=== PATIENT | female | born 1980 | race Caucasian/White ===

== ENCOUNTER → 2017-11-14 12:35 | Outpatient (CLI) | payer OTHER, SELFPAY ==
[2017-11-14 14:15] LABS: Free T3 2.3 pg/mL (2.18-3.98); T4 Free Direct 0.84 ng/dL (0.76-1.46)
== END ==
PROVIDERS: Family Provider Family Medicine; PCP Family Medicine
DX: E06.3 Autoimmune thyroiditis (principal)
CPT/HCPCS: 36415; 84439; 84481

== ENCOUNTER → 2022-03-06 | Outpatient (CLI) | payer OTHER, SELFPAY ==
[2022-03-06 17:59] LABS: Hematocrit 40.4 % (37-47); Mean Corp Hgb Conc 32.2 g/dL (32-36); Mean Corpuscular Hgb 30.1 pg (27.0-32.0); Mean Corpuscular Volume 93.5 fL (81-99); Mean Platelet Vol. 10.6 fl (6.2-12.0); Platelet Count 269 K/mm3 (150-450); RBC Distribution Width CV 12.4 % (11.6-14.6); RBC Distribution Width SD 42.5 fl (35.1-43.9); Red Blood Count 4.32 M/mm3 (4.2-5.4); White Blood Count 4.5 K/mm3 (4.4-11.0)
[2022-03-06 18:14] LABS: T3 Total - Triiodothyronine 0.92 ng/mL (0.6-1.81); Vitamin D,25 Hydroxy 36.4 ng/mL
[2022-03-06 18:27] LABS: ALB/GLOB Ratio 1.1 RATIO (0.9-2.4); AST(SGOT) 16 U/L (15-37); Alanine Aminotransfer ALT/SGPT 26 U/L (13-56); Alkaline Phosphatase 69 U/L (45-117); Anion Gap 7 (5-15); BUN 12 mg/dL (7-18); BUN/Creat Ratio 13.2 RATIO (10-20); Calcium,Total 8.9 mg/dL (8.5-10.1); Chloride 107 mmol/L (98-107); Cholesterol 211 mg/dL (200); Creatinine, Serum 0.91 mg/dL (0.55-1.02); EST Glomerular Filtration Rate 72 mL/min (>60); Est Glom Filt Rate - Afr Amer 87 mL/min (>60); Globulin 3.7 g/dL (2.2-4.2); Glucose 81 mg/dL (74-106); High Density Lipoprotein 80 mg/dL; Iron 82 ug/dL (50-170); Magnesium 2.1 mg/dL (1.6-2.6); Potassium 3.8 mmol/L (3.5-5.1); Protein, Total 7.7 g/dL (6.4-8.2); Sodium Level 142 mmol/L (136-145); T4 Free Direct 0.92 ng/dL (0.76-1.46); Thyroid Stim Hormone (TSH) 3.24 uIU/mL (0.358-3.74); Triglycerides 65 mg/dL; Very Low Density Lipoprotein 13 mg/dL (5-40)
== END | disposition home or self-care (01) ==
PROVIDERS: PCP Student in an Organized Health Care Education/Training Program; Referring Provider Student in an Organized Health Care Education/Training Program; Visit Provider Student in an Organized Health Care Education/Training Program
DX: Z13.220 Encounter for screening for lipoid disorders (principal); Z13.1 Encounter for screening for diabetes mellitus; E06.3 Autoimmune thyroiditis; E55.9 Vitamin D deficiency, unspecified; R25.2 Cramp and spasm; R53.83 Other fatigue
CPT/HCPCS: 36415; 80053; 80061; 82306; 83540; 83735; 84439; 84443; 84480; 85027

== ENCOUNTER → 2022-05-29 | Outpatient (CLI) | payer OTHER, SELFPAY ==
[2022-05-29 10:56] LABS: Vitamin B12 957 pg/mL (211-911)
[2022-05-29 11:16] LABS: Free T3 2.8 pg/mL (2.18-3.98); Thyroid Stim Hormone (TSH) 6.07 uIU/mL (0.358-3.74)
[2022-05-29 12:20] LABS: T4 Free Direct 0.85 ng/dL (0.76-1.46)
[2022-05-31 16:09] LABS: Endomysial Antibody IgA Negative (Negative); Immunoglobulin A 247 mg/dL (87-352); Thyroid Peroxidase AB 227 IU/mL (0-34)
[2022-05-31 16:56] LABS: Thyroglobulin Antibody 1.1 IU/mL (0.0-0.9); t-Transglutaminase IgA <2 U/mL (0-3)
== END | disposition home or self-care (01) ==
LOC: MTLAB 07:55
PROVIDERS: PCP Student in an Organized Health Care Education/Training Program; Referring Provider Internal Medicine Endocrinology, Diabetes & Metabolism; Visit Provider Internal Medicine Endocrinology, Diabetes & Metabolism
DX: E06.3 Autoimmune thyroiditis (principal); R53.82 Chronic fatigue, unspecified; E04.2 Nontoxic multinodular goiter
CPT/HCPCS: 36415; 82533; 82607; 82746; 82784; 83516; 84439; 84443; 84445; 84481; 86255; 86376; 86800

== ENCOUNTER → 2022-07-25 | Outpatient (CLI) | payer OTHER, SELFPAY ==
[2022-07-25 11:12] LABS: T4 Free Direct 0.78 ng/dL (0.76-1.46)
== END | disposition home or self-care (01) ==
LOC: MTLAB 07:19
PROVIDERS: PCP Student in an Organized Health Care Education/Training Program; Referring Provider Internal Medicine Endocrinology, Diabetes & Metabolism; Visit Provider Internal Medicine Endocrinology, Diabetes & Metabolism
DX: E06.3 Autoimmune thyroiditis (principal)
CPT/HCPCS: 36415; 84439; 84443

== ENCOUNTER → 2022-09-17 | Outpatient (CLI) | payer OTHER, SELFPAY ==
[2022-09-17 10:21] LABS: Free T3 2.3 pg/mL (2.18-3.98); T4 Free Direct 0.77 ng/dL (0.76-1.46); Thyroid Stim Hormone (TSH) 5.32 uIU/mL (0.358-3.74)
== END | disposition home or self-care (01) ==
LOC: MTLAB 07:44
PROVIDERS: PCP Student in an Organized Health Care Education/Training Program; Referring Provider Internal Medicine Endocrinology, Diabetes & Metabolism; Visit Provider Internal Medicine Endocrinology, Diabetes & Metabolism
DX: E06.3 Autoimmune thyroiditis (principal)
CPT/HCPCS: 36415; 84439; 84443; 84481

== ENCOUNTER → 2022-11-07 | Outpatient (CLI) | payer OTHER, SELFPAY ==
[2022-11-07 11:05] LABS: Free T3 2.4 pg/mL (2.18-3.98); T4 Free Direct 0.79 ng/dL (0.76-1.46); Thyroid Stim Hormone (TSH) 2.84 uIU/mL (0.358-3.74)
== END | disposition home or self-care (01) ==
LOC: MTLAB 07:55
PROVIDERS: PCP Student in an Organized Health Care Education/Training Program
DX: E06.3 Autoimmune thyroiditis (principal)
CPT/HCPCS: 36415; 84439; 84443; 84481

== ENCOUNTER → 2023-02-12 | Outpatient (CLI) | payer OTHER, SELFPAY ==
[2023-02-12 10:23] LABS: Free T3 2.5 pg/mL (2.18-3.98); T4 Free Direct 0.87 ng/dL (0.76-1.46); Thyroid Stim Hormone (TSH) 3.79 uIU/mL (0.358-3.74)
== END | disposition home or self-care (01) ==
PROVIDERS: PCP Student in an Organized Health Care Education/Training Program
DX: E06.3 Autoimmune thyroiditis (principal)
CPT/HCPCS: 36415; 84439; 84443; 84481

== ENCOUNTER → 2023-08-18 | Outpatient (CLI) | payer OTHER, SELFPAY ==
[2023-08-18 10:27] LABS: Vitamin D,25 Hydroxy 49.4 ng/mL
[2023-08-18 10:40] LABS: Anion Gap 6 (5-15); BUN 18 mg/dL (7-18); BUN/Creat Ratio 18.9 RATIO (10-20); Calcium,Total 8.7 mg/dL (8.5-10.1); Chloride 106 mmol/L (98-107); Creatinine, Serum 0.95 mg/dL (0.55-1.02); EST Glomerular Filtration Rate 67 mL/min (>60); Est Glom Filt Rate - Afr Amer 81 mL/min (>60); Free T3 2.5 pg/mL (2.18-3.98); Glucose 84 mg/dL (74-106); Potassium 3.2 mmol/L (3.5-5.1); Sodium Level 140 mmol/L (136-145); T4 Free Direct 0.93 ng/dL (0.76-1.46); Thyroid Stim Hormone (TSH) 4.07 uIU/mL (0.358-3.74)
== END | disposition home or self-care (01) ==
PROVIDERS: PCP Student in an Organized Health Care Education/Training Program; Referring Provider Internal Medicine Endocrinology, Diabetes & Metabolism; Visit Provider Internal Medicine Endocrinology, Diabetes & Metabolism
DX: E06.3 Autoimmune thyroiditis (principal); E55.9 Vitamin D deficiency, unspecified; R53.82 Chronic fatigue, unspecified
CPT/HCPCS: 36415; 80048; 82306; 84439; 84443; 84481

== ENCOUNTER → 2023-09-05 | Outpatient (CLI) | payer OTHER, SELFPAY ==
[2023-09-05 10:58] LABS: Anion Gap 7 (5-15); BUN 10 mg/dL (7-18); BUN/Creat Ratio 11.3 RATIO (10-20); Calcium,Total 8.7 mg/dL (8.5-10.1); Chloride 108 mmol/L (98-107); Creatinine, Serum 0.88 mg/dL (0.55-1.02); EST Glomerular Filtration Rate 73 mL/min (>60); Est Glom Filt Rate - Afr Amer 89 mL/min (>60); Glucose 87 mg/dL (74-106); Potassium 3.6 mmol/L (3.5-5.1); Sodium Level 141 mmol/L (136-145)
== END | disposition home or self-care (01) ==
LOC: MTLAB 07:20
PROVIDERS: PCP Student in an Organized Health Care Education/Training Program; Referring Provider Internal Medicine Endocrinology, Diabetes & Metabolism; Visit Provider Internal Medicine Endocrinology, Diabetes & Metabolism
DX: E87.6 Hypokalemia (principal)
CPT/HCPCS: 36415; 80048

== ENCOUNTER → 2023-10-02 | Outpatient (CLI) | payer OTHER, SELFPAY ==
[2023-10-02 10:56] LABS: Free T3 2.6 pg/mL (2.18-3.98); T4 Free Direct 0.79 ng/dL (0.76-1.46)
== END | disposition home or self-care (01) ==
LOC: MTLAB 07:53
PROVIDERS: PCP Student in an Organized Health Care Education/Training Program
DX: E06.3 Autoimmune thyroiditis (principal)
CPT/HCPCS: 36415; 84439; 84443; 84481

== ENCOUNTER → 2024-02-23 | Outpatient (CLI) | payer OTHER, SELFPAY ==
[2024-02-23 11:30] LABS: Anion Gap 4 (5-15); BUN 12 mg/dL (7-18); BUN/Creat Ratio 13.2 RATIO (10-20); Calcium,Total 8.7 mg/dL (8.5-10.1); Chloride 108 mmol/L (98-107); Creatinine, Serum 0.91 mg/dL (0.55-1.02); EST Glomerular Filtration Rate 71 mL/min (>60); Est Glom Filt Rate - Afr Amer 86 mL/min (>60); Glucose 92 mg/dL (74-106); Potassium 3.6 mmol/L (3.5-5.1); Sodium Level 140 mmol/L (136-145)
== END | disposition home or self-care (01) ==
LOC: MTLAB 08:06
PROVIDERS: PCP Student in an Organized Health Care Education/Training Program; Referring Provider Internal Medicine Endocrinology, Diabetes & Metabolism; Visit Provider Internal Medicine Endocrinology, Diabetes & Metabolism
DX: E87.6 Hypokalemia (principal)
CPT/HCPCS: 36415; 80048

== ENCOUNTER → 2024-03-18 | Outpatient (CLI) | payer OTHER, SELFPAY ==
[2024-03-18 10:56] LABS: Cholesterol 214 mg/dL (200); High Density Lipoprotein 78 mg/dL; Triglycerides 55 mg/dL; Very Low Density Lipoprotein 11 mg/dL (5-40)
[2024-03-18 11:50] LABS: Hepatitis C Antibody Non-Reactive (Nonreactive)
== END | disposition home or self-care (01) ==
LOC: MTLAB 07:44
PROVIDERS: PCP Student in an Organized Health Care Education/Training Program; Referring Provider Student in an Organized Health Care Education/Training Program; Visit Provider Student in an Organized Health Care Education/Training Program
DX: Z00.00 Encounter for general adult medical examination without abnormal findings (principal); Z11.59 Encounter for screening for other viral diseases; Z13.220 Encounter for screening for lipoid disorders; E78.5 Hyperlipidemia, unspecified
CPT/HCPCS: 36415; 80061; 86803

== ENCOUNTER → 2024-06-07 | Outpatient (CLI) | payer OTHER, SELFPAY ==
[2024-06-07 11:54] LABS: Anion Gap 9 (5-15); BUN 12 mg/dL (4-19); BUN/Creat Ratio 14.2 RATIO (10-20); Calcium,Total 9.1 mg/dL (7.6-11.0); Carbon Dioxide 25.1 mmol/L (21.0-32.0); Chloride 107 mmol/L (98-108); Creatinine, Serum 0.87 mg/dL (0.70-1.20); EST Glomerular Filtration Rate 83 (>60); Free T3 2.6 pg/mL (2.18-3.98); Glucose 88 mg/dL (70-99); Sodium Level 142 mmol/L (133-145)
== END | disposition home or self-care (01) ==
LOC: MTLAB 08:14
PROVIDERS: PCP Student in an Organized Health Care Education/Training Program; Referring Provider Internal Medicine Endocrinology, Diabetes & Metabolism; Visit Provider Internal Medicine Endocrinology, Diabetes & Metabolism
DX: E06.3 Autoimmune thyroiditis (principal); E55.9 Vitamin D deficiency, unspecified; E87.6 Hypokalemia
CPT/HCPCS: 36415; 80048; 82306; 84439; 84443; 84481

== ENCOUNTER → 2024-08-31 | Outpatient (CLI) | payer OTHER, SELFPAY ==
[2024-08-31 10:44] LABS: Anion Gap 10 (5-15); BUN 13 mg/dL (4-19); BUN/Creat Ratio 14.8 RATIO (10-20); Calcium,Total 9.1 mg/dL (7.6-11.0); Carbon Dioxide 23.8 mmol/L (21.0-32.0); Chloride 106 mmol/L (98-108); Free T3 2.6 pg/mL (2.18-3.98); Glucose 84 mg/dL (70-99); Potassium 4.0 mmol/L (3.3-5.1); Vitamin D,25 Hydroxy 49.3 ng/mL (30-100)
== END | disposition home or self-care (01) ==
LOC: MTLAB 07:59
PROVIDERS: PCP Student in an Organized Health Care Education/Training Program; Referring Provider Internal Medicine Endocrinology, Diabetes & Metabolism; Visit Provider Internal Medicine Endocrinology, Diabetes & Metabolism
DX: E06.3 Autoimmune thyroiditis (principal); E55.9 Vitamin D deficiency, unspecified; E87.6 Hypokalemia
CPT/HCPCS: 36415; 80048; 82306; 84439; 84443; 84481

== ENCOUNTER → 2024-10-15 | Outpatient (CLI) | payer OTHER, SELFPAY ==
--- OUTSIDE RECORDS SUMMARY | 2024-10-15 07:28 | XMS RPT_ITS | CCD ---
Author Organization [facility] Care Team Providers Care Clerical Warehouseman Name Role Phone MOROCCO, ISAEL D Unavailable Unavailable MOROCCO, ISAEL D Unavailable Unavailable MOROCCO, ISAEL D Unavailable Unavailable MOROCCO, ISAEL D Unavailable Unavailable MOROCCO, ISAEL D Unavailable Unavailable [facility] Unavailable Unavailable MOROCCO, ISAEL D Unavailable Unavailable MOROCCO, ISAEL D Unavailable Unavailable MOROCCO, ISAEL D Unavailable Unavailable [facility] Unavailable Unavailable Marie Staples DO Primary Care Provider Dr. Damir Tripathi DO Primary Care Provider Regino REGULATORY ADMINISTRATOR-CNatasha Attending Provider Regino REGULATORY ADMINISTRATOR-CNatasha Referring Provider [phone] Damir Tripathi Referring Unavailable Damir Tripathi Primary Care Unavailable Eri Raymundo Attending Unavailable Regino, Natasha A Referring Unavailable Regino, Natasha A Attending Unavailable Damir Tripathi Primary Care Unavailable Damir Tripathi Referring Unavailable Damir Tripathi Attending Unavailable Damir Tripathi Primary Care Unavailable Damir Tripathi Primary Care Unavailable Regino, Natasha A Referring Unavailable Regino, Natasha A Attending Unavailable Damir Tripathi Primary Care Unavailable Alex, Jaxson Y Referring Unavailable Alex, Jaxson Y Attending Unavailable Damir Tripathi Primary Care Unavailable PESEK, TOD1 Referring Unavailable PESEK, TOD1 Attending Unavailable Allergies Allergy Classification Reported Allergen(s) Allergy Type Date of Onset Reaction(s) Facility (2 sources) Dust; Translations: [DUST] Propensity to adverse reactions (disorder) 6 Unknown [facility] Repository (2 sources) ANIMAL DANDER; Translations: [ANIMAL DANDER] Propensity to adverse reactions (disorder) 6 Unknown [facility] Medications Current Medications Medication Drug Class(es) Dates Sig (Normalized) Sig (Original) Ashwagandha Extract 500 mg capsule (1 source) Start: 01-03-2024 Ashwagandha Extract 500 mg capsule Active mg PO January 03, 2024 1:00am B-Complex With Vitamin C capsule (1 source) Start: 01-03-2024 B-Complex With Vitamin C capsule Active 1 NMA PO daily January 03, 2024 1:00am ELDERBERRY FRUIT (1 source) Start: 01-03-2024 Elderberry Fruit 350 mg capsule Active mg PO January 03, 2024 1:00am Lactobacillus Combination No.4 (Probiotic) 3 billion cell capsule (1 source) Start: 01-03-2024 take 3 capsules by mouth once daily Lactobacillus Combination No.4 (Probiotic) 3 billion cell capsule Active 3000 NMA PO daily January 03, 2024 1:00am administer with a meal thyroid (intermediate) 15 mg oral tablet (1 source) Start: 01-03-2024 Thyroid (Pork) (Waddell Thyroid) 15 mg tablet Active mg PO January 03, 2024 1:00am Turmeric extract (1 source) Start: 01-03-2024 Turmeric 400 mg capsule Active mg PO January 03, 2024 1:00am retinol acetate [id number] unt sublingual tablet (1 source) Vitamin A Start: 01-03-2024 Vitamin A Acetate 3,000 mcg (10,000 unit) tablet, sublingual Active ug PO daily January 03, 2024 1:00am Completed/Discontinued Medications Medication Drug Class(es) Dates Sig (Normalized) Sig (Original) ASHWAGANDHA ROOT EXTRACT,BULK, MISC (1 source) ASHWAGANDHA ROOT EXTRACT,BULK, MISC B COMPLEX WITH VITAMIN C (VITAMIN B COMPLEX-C ORAL) (1 source) B COMPLEX WITH VITAMIN C (VITAMIN B COMPLEX-C ORAL) Take by mouth. 0 Active Comment on above: Take by mouth. cholecalciferol 0.05 mg oral capsule (1 source) Vitamin D Cholecalciferol, Vitamin D3, (VITAMIN D-3) 2,000 unit cap Take by mouth. 0 Active Comment on above: Take by mouth. L-TYROSINE ORAL (1 source) L-TYROSINE ORAL Take by mouth. 0 Active Comment on above: Take by mouth. Lactobacillus acidophilus (1 source) LACTOBACILLUS ACIDOPHILUS (PROBIOTIC ORAL) Take by mouth. 0 Active Comment on above: Take by mouth. MEDICATION, NON-DATABASE (1 source) MEDICATION, NON-DATABASE Yumiko leanne bergamont essential oil Frankincense myrtle & lemograss essential oil Savannah & Nutmeg essential oil 0 Active Comment on above: Yumiko leanne bergamont essential oil Frankincense myrtle & lemograss essential oil Savannah & Nutmeg essential oil SELENIUM ORAL (1 source) take 200 ug by mouth once daily SELENIUM ORAL Take 200 mcg by mouth once daily. 0 Active Comment on above: Take 200 mcg by mout h once daily. TURMERIC ROOT EXTRACT ORAL (1 source) TURMERIC ROOT EXTRACT ORAL Take by mouth once daily. 0 Active Comment on above: Take by mouth once d aily. Problems Active Problems Problem Classification Problem Date Documented Da te Episodic/Chronic Other upper respiratory infections (2 sources) Viral upper respiratory tract infection; Translations: [Acute upper respiratory infection, unspecified] 01-03-2024 Episodic Thyroid disorders (5 sources) Goiter; Translations: [Nontoxic goiter, unspecified] Onset: 09-06-2024 09-05-2015 Chronic Unclassified (1 source) Unknown / UNK(Unknown) Onset: 11-14-2017 Past or Other Problems Problem Classification Problem Date Documented Da te Episodic/Chronic Fluid and electrolyte disorders (1 source) Hypokalemia; Translations: [Hypokalemia] Onset: 03-17-2024 Episodic Unclassified (1 source) Nontoxic goiter, unspecified Onset: 11-14-2017 Results Test Name Value Interpretation Reference Range Facil ity Anion gap in Serum or Plasma Ordered By: Natasha Lacy on 08-31-2024 Anion gap [Moles/Vol] 10 mmol/L 07-01 [facility] BUN/creatinine ratioOrdered By: Natasha Lacy on 08-31-2024 Urea nitrogen/Creatinine [Mass ratio] 14.8 mg/mg 12-06 [facility] Basic Metabolic Profile (BMP )on 08-31-2024 BUN/CRE 14.8 RATIO Normal 12-06 [facility] Comment on above: Performed By: #### L 500.2500, L506.1001, L506.0400, L501.9599, L501.95498 #### [facility] [address] [place], [address] Calcium [Mass/Vol] 9.1 mg/dL Normal 7.6-11.0 [facility] Comment on above: Performed By: #### L 500.2500, L506.1001, L506.0400, L501.9520, L501.13745 #### [facility] [address] [place], [address] Chloride [Moles/Vol] 106 mmol/L Normal 98-108 [facility] Comment on above: Performed By: #### L 500.2500, L506.1001, L506.0400, L501.9520, L501.43888 #### [facility] [address] [place], [address] CO2 [Moles/Vol] 23.8 mmol/L Normal 21.0-32.0 [facility] Comment on above: Performed By: #### L 500.2500, L506.1001, L506.0400, L501.9520, L501.59557 #### [facility] [address] [place], [address] Creatinine [Mass/Vol] 0.87 mg/dL Normal 0.70-1.20 [facility] Comment on above: Performed By: #### L 500.2500, L506.1001, L506.0400, L501.9520, L501.48529 #### [facility] [address] [place], [address] GAP 10 Normal 5-15 [facility] Comment on above: Performed By: #### L 500.2500, L506.1001, L506.0400, L501.9520, L501.83059 #### [facility] [address] [place], [address] GFR/1.73 sq M.predicted among non-blacks MDRD (S/P/Bld) [Vol rate/Area] 84 mL/min/{1.73_m2} Normal >60 [facility] Comment on above: Result Comment: mL/m in/1.73m2 CKD-EPI Creatinine Equation (2020) Performed By: #### L 500.2500, L506.1001, L506.0400, L501.9520, L501.89043 #### [facility] [address] [place], [address] Glucose [Mass/Vol] 84 mg/dL Normal 70-99 [facility] Comment on above: Performed By: #### L 500.2500, L506.1001, L506.0400, L501.9520, L501.89880 #### [facility] [address] [place], [address] Potassium [Moles/Vol] 4.0 mmol/L Normal 3.3-5.1 [facility] Comment on above: Performed By: #### L 500.2500, L506.1001, L506.0400, L501.9520, L501.83322 #### [facility] [address] [place], [address] Sodium [Moles/Vol] 140 mmol/L Normal 133-145 [facility] Comment on above: Performed By: #### L 500.2500, L506.1001, L506.0400, L501.9520, L501.37935 #### [facility] [address] [place], [address] Urea nitrogen [Mass/Vol] 13 mg/dL Normal 4-19 [facility] Comment on above: Performed By: #### L 500.2500, L506.1001, L506.0400, L501.9520, L501.45005 #### [facility] [address] [place], [address] Carbon dioxide, total [Moles /volume] in Central venous bloodOrdered By: Natasha Lacy on 08-31-2024 CO2 [Moles/Vol] 23.8 mmol/L 21.0-32.0 [facility] Chloride assayOrdered By: Marnie Lacy on 08-31-2024 Chloride [Moles/Vol] 106 mmol/L 98-108 [facility] Free T3on 08-31-2024 Free T3 [Mass/Vol] 2.6 pg/mL Normal 2.18-3.98 [facility] Comment on above: Performed By: #### L 500.2500, L506.1001, L506.0400, L501.9520, L501.64100 #### [facility] [address] [place], [address] Free [id number] By: Natasha ellison on 08-31-2024 Free T3 [Mass/Vol] 2.6 pg/mL 2.18-3.98 [facility] Glomerular filtration rate ( GFR) estimation/1.73 sq m using serum, plasma, or whole bOrdered By: Natasha Lacy on 08-31-2024 GFR/1.73 sq M.predicted among non-blacks MDRD (S/P/Bld) [Vol rate/Area] 84 mL/min/{1.73_m2} >60 [facility] Comment on above: mL/min/1.73m2 CKD-EP I Creatinine Equation (2020) Potassium measurement (mass/ volume)Ordered By: Natasha Lacy on 08-31-2024 Potassium (Unsp spec) [Mass/Vol] 4.0 mmol/L 3.3-5.1 [facility] Serum creatinine measurement (mass/volume)Ordered By: Natasha Lacy on 08-31-2024 Creatinine [Mass/Vol] 0.87 mg/dL 0.70-1.20 [facility] Serum glucose measurement (m ass/volume)Ordered By: Natasha Lacy on 08-31-2024 Glucose [Mass/Vol] 84 mg/dL 70-99 [facility] Serum or plasma calcium monica urement (mass/volume)Ordered By: Natasha Lacy on 08-31-2024 Calcium [Mass/Vol] 9.1 mg/dL 7.6-11.0 [facility] Serum or plasma urea nitroge n measurement (mass/volume)Ordered By: Natasha Lacy on 08-31-2024 Urea nitrogen [Mass/Vol] 13 mg/dL 4-19 [facility] Sodium levelOrdered By: Claudia Lacy on 08-31-2024 Sodium [Moles/Vol] 140 mmol/L 133-145 [facility] T4 Free Directon 08-31-2024 T4 FREE DIRECT 1.00 ng/dL Normal 0.76-1.46 [facility] Comment on above: Performed By: #### L 501.42137, L501.9520, L506.0400 #### [facility] [address] [place], [place], [id number] T4 freeOrdered By: Natasha ellison on 08-31-2024 Free T4 [Mass/Vol] 1.00 ng/dL 0.76-1.46 [facility] TSH DL <= 0.005 mIU/L QnOrde red By: Natasha Lacy on 08-31-2024 TSH Qn 4.310 uIU/mL High 0.300-4.200 [facility] Thyroid Stim Hormone (TSH)on 08-31-2024 TSH 4.310 uIU/mL High 0.300-4.200 [facility] Comment on above: Performed By: #### L 500.2500, L506.1001, L506.0400, L501.9520, L501.54617 #### [facility] [address] [place], [place], [id number] Vitamin D,25 Hydroxyon 08-31 Vitamin D 25-OH 49.3 ng/mL Normal 30-100 [facility] Comment on above: Result Comment: Aida min D Status Deficiency: <20 ng/mL (50nmol/L) Insufficiency: 20-30 ng/mL (50-75 nmol/L) Sufficiency: 30-100 ng/mL (75-250 nmol/L) Toxicity: >100 ng/mL (>250 nmol/L) Performed By: #### L 501.92513, L501.9520, L506.0400 #### [facility] [address] [place], [address] Anion gap in Serum or Plasma Ordered By: Natasha Lacy on 06-07-2024 Anion gap [Moles/Vol] 9 mmol/L 07-01 [facility] BUN/creatinine ratioOrdered By: Natasha Lacy on 06-07-2024 Urea nitrogen/Creatinine [Mass ratio] 14.2 mg/mg 12-06 [facility] Basic Metabolic Profile (BMP )on 06-07-2024 BUN/CRE 14.2 RATIO Normal 12-06 [facility] Comment on above: Performed By: #### L 501.81775, L501.9520, L506.0400 #### [facility] [address] [place], [address] Calcium [Mass/Vol] 9.1 mg/dL Normal 7.6-11.0 [facility] Comment on above: Performed By: #### L 501.76503, L501.9520, L506.0400 #### [facility] [address] [place], [address] Chloride [Moles/Vol] 107 mmol/L Normal 98-108 [facility] Comment on above: Performed By: #### L 501.54852, L501.9520, L506.0400 #### [facility] [address] [place], [address] CO2 [Moles/Vol] 25.1 mmol/L Normal 21.0-32.0 [facility] Comment on above: Performed By: #### L 501.70864, L501.9520, L506.0400 #### [facility] [address] [place], [address] Creatinine [Mass/Vol] 0.87 mg/dL Normal 0.70-1.20 [facility] Comment on above: Performed By: #### L 501.86692, L501.9520, L506.0400 #### [facility] [address] [place], [address] GAP 9 Normal 5-15 [facility] Comment on above: Performed By: #### L 501.98540, L501.9520, L506.0400 #### [facility] [address] [place], [address] GFR/1.73 sq M.predicted among non-blacks MDRD (S/P/Bld) [Vol rate/Area] 83 mL/min/{1.73_m2} Normal >60 [facility] Comment on above: Result Comment: mL/m in/1.73m2 CKD-EPI Creatinine Equation (2020) Performed By: #### L 501.94818, L501.9520, L506.0400 #### [facility] [address] [place], [address] Glucose [Mass/Vol] 88 mg/dL Normal 70-99 [facility] Comment on above: Performed By: #### L 501.52530, L501.9520, L506.0400 #### [facility] [address] [place], [address] Potassium [Moles/Vol] 4.0 mmol/L Normal 3.3-5.1 [facility] Comment on above: Performed By: #### L 501.56098, L501.9520, L506.0400 #### [facility] [address] [place], [address] Sodium [Moles/Vol] 142 mmol/L Normal 133-145 [facility] Comment on above: Performed By: #### L 501.99802, L501.9520, L506.0400 #### [facility] [address] [place], [address] Urea nitrogen [Mass/Vol] 12 mg/dL Normal 4-19 [facility] Comment on above: Performed By: #### L 501.73369, L501.9520, L506.0400 #### [facility] [address] [place], [address] Carbon dioxide, total [Moles /volume] in Central venous bloodOrdered By: Natasha Lacy on 06-07-2024 CO2 [Moles/Vol] 25.1 mmol/L 21.0-32.0 [facility] Chloride assayOrdered By: Marnie Lacy on 06-07-2024 Chloride [Moles/Vol] 107 mmol/L 98-108 [facility] Free T3on 06-07-2024 Free T3 [Mass/Vol] 2.6 pg/mL Normal 2.18-3.98 [facility] Comment on above: Performed By: #### L 501.40970, L501.9520, L506.0400 #### [facility] [address] [place], [address] Free [id number] By: Natasha ellison on 06-07-2024 Free T3 [Mass/Vol] 2.6 pg/mL 2.18-3.98 [facility] Glomerular filtration rate ( GFR) estimation/1.73 sq m using serum, plasma, or whole bOrdered By: Natasha Lacy on 06-07-2024 GFR/1.73 sq M.predicted among non-blacks MDRD (S/P/Bld) [Vol rate/Area] 83 mL/min/{1.73_m2} >60 [facility] Comment on above: mL/min/1.73m2 CKD-EP I Creatinine Equation (2020) Potassium measurement (mass/ volume)Ordered By: Natasha Lacy on 06-07-2024 Potassium (Unsp spec) [Mass/Vol] 4.0 mmol/L 3.3-5.1 [facility] Serum creatinine measurement (mass/volume)Ordered By: Natasha Lacy on 06-07-2024 Creatinine [Mass/Vol] 0.87 mg/dL 0.70-1.20 [facility] Serum glucose measurement (m ass/volume)Ordered By: Natasha Lacy on 06-07-2024 Glucose [Mass/Vol] 88 mg/dL 70-99 [facility] Serum or plasma calcium monica urement (mass/volume)Ordered By: Natasha Lacy on 06-07-2024 Calcium [Mass/Vol] 9.1 mg/dL 7.6-11.0 [facility] Serum or plasma urea nitroge n measurement (mass/volume)Ordered By: Natasha Lacy on 06-07-2024 Urea nitrogen [Mass/Vol] 12 mg/dL 4-19 [facility] Sodium levelOrdered By: Claudia Lacy on 06-07-2024 Sodium [Moles/Vol] 142 mmol/L 133-145 [facility] T4 Free Directon 06-07-2024 T4 FREE DIRECT 0.90 ng/dL Normal 0.76-1.46 [facility] Comment on above: Performed By: #### L 501.80392, L501.9557, L506.0400 #### [facility] [address] [place], [place], [address] T4 freeOrdered By: Natasha ellison on 06-07-2024 Free T4 [Mass/Vol] 0.90 ng/dL 0.76-1.46 [facility] TSH DL <= 0.005 mIU/L QnOrde red By: Natasha Lacy on 06-07-2024 TSH Qn 3.460 uIU/mL 0.300-4.200 [facility] Thyroid Stim Hormone (TSH)on 06-07-2024 TSH 3.460 uIU/mL Normal 0.300-4.200 [facility] Comment on above: Performed By: #### L 501.37349, L501.9520, L506.0400 #### [facility] [address] [place], [place], [address] Vitamin D,25 Hydroxyon 06-07 Vitamin D 25-OH 36.0 ng/mL Normal 30-100 [facility] Comment on above: Result Comment: Aida min D Status Deficiency: <20 ng/mL (50nmol/L) Insufficiency: 20-30 ng/mL (50-75 nmol/L) Sufficiency: 30-100 ng/mL (75-250 nmol/L) Toxicity: >100 ng/mL (>250 nmol/L) Performed By: #### L 501.50713, L501.9520, L506.0400 #### [facility] [address] [place], [address] Hepatitis C Antibodyon 03-18 Hepatitis C AB Non-Reactive Normal Nonreactive [facility] Comment on above: Result Comment: Non Reactive: < 0.8 Equivocal: >/= 0.8 to < 1.0 Reactive: >/= 1.0 The CDC requires that a reactive/equivocal HCV antibody result be sent out for confirmation. HCV Quant by PCR testing. Performed By: #### L 3890.6300, L500.4100 #### [facility] [address] [place], [address] Lipid Profileon 03-18-2024 Cholesterol [Mass/Vol] 214 mg/dL High 200 [facility] Comment on above: Result Comment: <200 mg/dL Desirable 200-240 mg/dL Borderline >240 mg/dL High Risk Performed By: #### L 3890.6300, L500.4100 #### [facility] [address] [place], [address] Cholesterol in HDL [Mass/Vol] 78 mg/dL Normal [facility] Comment on above: Result Comment: The drugs N-Acetylcysteine and Metamizole may falsely depress this assay. Reference Range HDL <40 mg/dL Low HDL Cholesterol HDL >or= 60 mg/dL High HDL Cholesterol Performed By: #### L 3890.6300, L500.4100 #### [facility] [address] [place], [address] Cholesterol in LDL [Mass/Vol] 125 mg/dL Normal 0-130 [facility] Comment on above: Performed By: #### L 3890.6300, L500.4100 #### [facility] [address] [place], [address] Cholesterol in VLDL [Mass/Vol] 11 mg/dL Normal 5-40 [facility] Comment on above: Performed By: #### L 3890.6300, L500.4100 #### [facility] [address] [place], [address] Triglyceride [Mass/Vol] 55 mg/dL Normal [facility] Comment on above: Result Comment: The drugs N-Acetylcysteine and Metamizole may falsely depress this assay. Serum Triglycerides Reference Interval Normal <150 mg/dL Borderline high 150 - 199 mg/dL High 200 - 499 mg/dL Very High > or = 500 mg/dL Performed By: #### L 3890.6300, L500.4100 #### [facility] [address] [place], [address] Basic Metabolic Profile (BMP )on 02-23-2024 BUN/CRE 13.2 RATIO Normal 10-20 [facility] Comment on above: Performed By: #### L 500.2500 #### [facility] [address] [place], [address] CA,Total 8.7 mg/dL Normal 8.5-10.1 [facility] Comment on above: Performed By: #### L 500.2500 #### [facility] [address] [place], [address] Chloride [Moles/Vol] 108 mmol/L High 98-107 [facility] Comment on above: Performed By: #### L 500.2500 #### [facility] [address] [place], [address] CO2 [Moles/Vol] 28.0 mmol/L Normal 21.0-32.0 [facility] Comment on above: Performed By: #### L 500.2500 #### [facility] [address] [place], [address] Creatinine [Mass/Vol] 0.91 mg/dL Normal 0.55-1.02 [facility] Comment on above: Result Comment: The validity of the calculated GFR GFRAA in patients over 70 years has not been determined. Clinical correlation is essential. Performed By: #### L 500.2500 #### [facility] [address] [place], [address] EST GFR - AA 86 mL/min Normal >60 [facility] Comment on above: Result Comment: Afri can [place] GFR Calc Performed By: #### L 500.2500 #### [facility] [address] [place], [address] GAP 4 Low 5-15 [facility] Comment on above: Performed By: #### L 500.2500 #### [facility] [address] [place], [address] GFR/1.73 sq M.predicted among non-blacks MDRD (S/P/Bld) [Vol rate/Area] 71 mL/min/{1.73_m2} Normal >60 [facility] Comment on above: Result Comment: Non- GFR Calc Performed By: #### L 500.2500 #### [facility] [address] [place], [address] Glucose [Mass/Vol] 92 mg/dL Normal 74-106 [facility] Comment on above: Performed By: #### L 500.2500 #### [facility] [address] [place], [address] Potassium [Moles/Vol] 3.6 mmol/L Normal 3.5-5.1 [facility] Comment on above: Performed By: #### L 500.2500 #### [facility] [address] [place], [address] Sodium [Moles/Vol] 140 mmol/L Normal 136-145 [facility] Comment on above: Performed By: #### L 500.2500 #### [facility] [address] [place], [place], [id number] Urea nitrogen [Mass/Vol] 12 mg/dL Normal 7-18 [facility] Comment on above: Performed By: #### L 500.2500 #### [facility] [address] [place], [place], [address] Urgent Care Visit Reporton 1 03-04-2023 Urgent Care Visit Report [facility] [address], [address] [place], [place] [address] OFFICE VISIT Date of Service: 01/03/24 MR#: [id number] Acct: [id number] Name: CORTEZ ALEGRE Rep #: [id number] : 1980 Provider: DANNIE Raymundo Age/Sex: 43/F Location: [facility] Status: Signed Intake Vital Signs 11/10/15 16:11 01/03/24 10:02 Height 5 ft 3 in 5 ft 3 in Weight: 150 lb 2 oz BMI 26.6 BP 100/54 L Blood Pressure Location Lt brachial Position Sitting Respiration 15 Pulse 96 Pulse Source NIBP Temp 99.3 F H Temp Source Oral Pulse Oximetry (%) 97 Oxygen Delivery Method room air Intake Visit Reasons: SINUS/COUGH Chief Complaint: cough, chest congest [employer] Required: No Is patient in pain?: No Allergies No Known Allergies Allergy (Verified 01/03/24 10:05) Medications ???Medication ???Instructions ???Recorded ???Confirmed ???Type B-complex with vitamin C 1 cap PO QDAY 01/03/24 History ashwagandha extract 500 mg capsule mg PO 01/03/24 History elderberry fruit 350 mg capsule mg PO 01/03/24 History lactobacillus combination no.4 3 3,000 mmu cells PO QDAY 01/03/24 History billion cell capsule (Probiotic) thyroid (pork) 15 mg tablet mg PO 01/03/24 History ([place]ell Thyroid) turmeric 400 mg capsule mg PO 01/03/24 History vitamin A acetate 3,000 mcg mcg PO QDAY 01/03/24 History (10,000 unit) sublingual tablet Is last menstrual period known: No Post menopausal: No Patient : No Have you fallen in the past year?: No Nurse's Note: cough, chest congest, rib/lung soreness x 12 hours. denies SOB, fever, mucus. daughter with bacterial pneumonia, concern for same. [facility], [facility] Medical History (Updated 01/03/24 @ 10:12 by DANNIE Yoder) Hypothyroid Surgical History (Updated 01/03/24 @ 10:06 by Mariely Pyle) History of 2 sections Family History (Updated 01/03/24 @ 10:06 by Mariely Pyle) Other CAD (coronary artery disease) Cancer Heart disease Thyroid disorder Social History Smoking Status: Former smoker HPI HPI Chief Complaint: cough, chest congest Details: ELENO ALEGRE, is a 43 F who presents to the office today for concern dtr tested + for pneum -sx started last night- daughter dx Friday. -sx congestion in throat -runny nose -no fever- felt hot last night so took covers off -cough is wet no sputum production -no smoker -tried so far mucinex ROS Const Constitutional: Positive for other (ROS negative x6 except what was placed in HPI) Exam Const General: cooperative, comfortable and no acute distress Orientation: alert, awake and oriented x3 HENMT Head: normal to inspection and normocephalic Ears: hearing grossly normal bilaterally, external ears normal and TM's normal bilaterally Nose: external nose normal and other (+ congestion and rhinorrhea. ) Face and sinus: normal facial exam, sinuses nontender and face symmetric Mouth: oral mucosae normal, lip normal, tongue normal, oropharynx normal and moist mucous membranes Throat: posterior oropharynx normal, tonsils normal, uvula midline and postnasal drainage Neck Neck: normal visual inspection, full ROM and no lymphadenopathy Resp Effort Inspection: normal respiratory effort, able to speak in complete sentences and symmetric chest movement Auscultation: Bilateral: Clear to Auscultation, Left: Clear to Auscultation and Right: Clear to Auscultation Cardio Rate: regular rate Rhythm: regular rhythm Heart Sounds: S1 normal and S2 normal GI Auscultation: normal bowel sounds Palpation: soft Skin General: no rashes or lesions noted and turgor normal Neuro General: patient alert, patient awake and patient oriented x3 Cognition: normal cognition Speech: speech normal Psych Appearance: grossly normal Mental Status: mental status grossly normal Attitude: cooperative Thought Process: normal Thought Content: normal Coding Level of Care Code Off vis,new,level 3 Diagnoses Viral URI with cough J06.9 PND (post-nasal drip) R09.82 Assessment and Plan Assessment and Plan (1) Viral URI with cough: Status: Acute Plan: -Warm salt water gargles, warm tea with honey, increase fluids, saline nasal spray 2 squirts each nostril every 2 hours as needed, Flonase nasal spray 1 squirt once a day, cetirizine (Zyrtec) one daily, cool mist humidifier, Tylenol and or ibuprofen as needed for fever or discomfort. -good hand washing -Please follow up with your Primary Care Physician for ongoing chronic problems. If symptoms change or worsen, please present to Emergency Room for further evaluation 1. See visit diagnoses, disposition, and orders. 2. Reviewed and updated medication list; Discussed probable diagnosis, test results if available in (more content not included)... Normal [facility] Free T3on 10-02-2023 Free T3 [Mass/Vol] 2.6 pg/mL Normal 2.18-3.98 [facility] Comment on above: Performed By: #### L [id number], [id number], L506.0400 #### [facility] Laboratory [address], [place], [id number] T4 Free Directon 10-02-2023 T4 FREE DIRECT 0.79 ng/dL Normal 0.76-1.46 [facility] Comment on above: Performed By: #### L [id number], [id number], L506.0400 #### [facility] [address], [place], [id number] Thyroid Stim Hormone (TSH)on 10-02-2023 TSH 4.480 uIU/mL High 0.358-3.740 [facility] Comment on above: Performed By: #### L [id number], [id number], L506.0400 #### [facility] [address] [place], [address] Laboratory - Chemistry and C hemistry - challengeon 02-12-2023 Free T4 [Mass/Vol] 0.87 ng/dL 0.76-1.46 [facility] No Panel Informationon 02-12 Free Triiodothyronine (T3) pg/dL 2.5 pg/mL 2.18-3.98 [facility] Thyroid Stimulating Hormone (TSH) 3.79 uIU/mL 0.358-3.74 [facility] Laboratory - Chemistry and C hemistry - challengeon 11-07-2022 Free T4 [Mass/Vol] 0.79 ng/dL 0.76-1.46 [facility] No Panel Informationon 11-07 Free Triiodothyronine (T3) pg/dL 2.4 pg/mL 2.18-3.98 [facility] Thyroid Stimulating Hormone (TSH) 2.84 uIU/mL 0.358-3.74 [facility] Laboratory - Chemistry and C hemistry - challengeOrdered By: Jaxson Johnson on 09-17-2022 Free T4 [Mass/Vol] 0.77 ng/dL 0.76-1.46 [facility] No Panel InformationOrdered By: Jaxsonanita Johnson on 09-17-2022 Free Triiodothyronine (T3) pg/dL 2.3 pg/mL 2.18-3.98 [facility] Thyroid Stimulating Hormone (TSH) 5.32 uIU/mL 0.358-3.74 [facility] Laboratory - Chemistry and C hemistry - challengeOrdered By: Jaxson Alex on 07-25-2022 Free T4 [Mass/Vol] 0.78 ng/dL 0.76-1.46 [facility] No Panel InformationOrdered By: Jaxson Alex on 07-25-2022 Thyroid Stimulating Hormone (TSH) 4.90 uIU/mL 0.358-3.74 [facility] CNPNon 05-27-2022 CNPN Telephone ([id number]) ---- CORTEZ ALEGRE ([id number]) 1980 F Date Time Provider Department 05/27/22 ISAEL CHAN During your visit today, we recorded the following information about you: Amadou Price 05/27/2022 10:48 AM Signed [facility]ILAR FROM [facility] CALLED AND LEFT A VOICEMAIL MESSAGE REQUESTING PATIENT'S MEDICAL RECORDS, PATIENT WOULD NEED TO SIGN A MEDICAL RECORDS RELEASE FORM, I DID TRY TO CALL PATIENT AND ADVISE HER BUT NO ANSWER AND HER MAILBOX IS FULL. THANK YOU Amadou Price May 27, 2022 10:48 AM Allergies As of Date: 05/27/2022 Noted Allergy Reaction ANIMAL DANDER 08/16/2015 16 - Unknown DUST 08/16/2015 16 - Unknown Date Reviewed: 11/14/2017 Reviewed by: Isael Chan - Fully Assessed Reason for Visit: Release Of Medical Records [2017] Prescriptions as of 05/27/2022 - TURMERIC ROOT EXTRACT ORAL Take by mouth once daily. - MEDICATION, NON-DATABASE Yumiko leanne bergamont essential oil Frankincense myrtle AND lemograss essential oil [place] AND Nutmeg essential oil - ASHWAGANDHA ROOT EXTRACT,BULK, MISC - L-TYROSINE ORAL Take by mouth. - LACTOBACILLUS ACIDOPHILUS (PROBIOTIC ORAL) Take by mouth. - SELENIUM ORAL Take 200 mcg by mouth once daily. - B COMPLEX WITH VITAMIN C (VITAMIN B COMPLEX-C ORAL) Take by mouth. - Cholecalciferol, Vitamin D3, (VITAMIN D-3) 2,000 unit cap Take by mouth. 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 Tripathi on 03-06-2022 Bilirubin [Mass/Vol] 0.50 mg/dL 0.20-1.00 [facility] Comment on above: For patients on eltr ombopag therapy, use of Dimension [place] TBIL is not recommended. Chloride [Moles/Vol] 107 mmol/L 98-107 [facility] Cholesterol [Mass/Vol] 211 mg/dL <200 [facility] Comment on above: <200 mg/dL Desirable 200-240 mg/dL Borderline >240 mg/dL High Risk Glucose [Mass/Vol] 81 mg/dL 74-106 [facility] Potassium [Moles/Vol] 3.8 mmol/L 3.5-5.1 [facility] Protein [Mass/Vol] 7.7 g/dL 6.4-8.2 [facility] Sodium [Moles/Vol] 142 mmol/L 136-145 [facility] Triglyceride [Mass/Vol] 65 mg/dL <199 [facility] Comment on above: The drugs N-Acetylcy steine and Metamizole may falsely depress this assay.Serum Triglycerides Reference Interval Normal <150 mg/dL Borderline high 150 - 199 mg/dL High 200 - 499 mg/dL Very High > or = 500 mg/dL WBC (Bld) [#/Vol] 4.5 10*3/uL 4.4-11.0 [facility] Blood erythrocytes count (nu mber/volume)Ordered By: Dr. Tripathi on 03-06-2022 RBC (Bld) [#/Vol] 4.32 10*6/uL 4.2-5.4 [facility] Blood hemoglobin measurement (mass/volume)Ordered By: Dr. Tripathi on 03-06-2022 Hemoglobin (Bld) [Mass/Vol] 13.0 g/dL 12.0-15.0 [facility] Blood platelet mean volumeOr dered By: Dr. Tripathi on 03-06-2022 Platelet mean volume (Bld) [Entitic vol] 10.6 fL 6.2-12.0 [facility] Determination of erythrocyte mean corpuscular volume (MCV)Ordered By: Dr. Tripathi on 03-06-2022 MCV (RBC) [Entitic vol] 93.5 fL 81-99 [facility] Hematocrit Auto (Bld) [Volum e fraction]Ordered By: Dr. Tripathi on 03-06-2022 Hematocrit (Bld) [Volume fraction] 40.4 % 37-47 [facility] Iron measurement (mass/mass) Ordered By: Dr. Tripathi on 03-06-2022 Iron (Unsp spec) [Mass/Mass] 82 ug/dL 50-170 [facility] Laboratory - Chemistry and C hemistry - challengeOrdered By: Dr. Tripathi on 03-06-2022 ALP [Catalytic activity/Vol] 69 U/L 45-117 [facility] ALT [Catalytic activity/Vol] 26 U/L 13-56 [facility] CO2 [Moles/Vol] 28.0 mmol/L 21.0-32.0 [facility] Free T4 [Mass/Vol] 0.92 ng/dL 0.76-1.46 [facility] Globulin (S) [Mass/Vol] 3.7 g/dL 2.2-4.2 [facility] Magnesium [Mass/Vol] 2.1 mg/dL 1.6-2.6 [facility] Urea nitrogen/Creatinine [Mass ratio] 13.2 mg/mg 10-20 [facility] Laboratory - Hematology and Cell countsOrdered By: Dr. Tripathi on 03-06-2022 Erythrocyte distribution width (RBC) [Entitic vol] 42.5 fL 35.1-43.9 [facility] Erythrocyte distribution width (RBC) [Ratio] 12.4 % 11.6-14.6 [facility] MCH (RBC) [Entitic mass] 30.1 pg 27.0-32.0 [facility] MCHC Auto (RBC) [Mass/Vol]Or dered By: Dr. Tripathi on 03-06-2022 MCHC (RBC) [Mass/Vol] 32.2 g/dL 32-36 [facility] No Panel InformationOrdered By: Dr. Tripathi on 03-06-2022 Estimated GFR (MDRD) Amer 87 mL/min >60 [facility] Comment on above: GFR Calc Estimated GFR (MDRD) Non-Af Amer 72 mL/min >60 [facility] Comment on above: Non- GFR Calc Thyroid Stimulating Hormone (TSH) 3.24 uIU/mL 0.358-3.74 [facility] Total Triiodothyronine 0.92 ng/mL 0.6-1.81 [facility] Vitamin D 25-Hydroxy 36.4 ng/mL [facility] Comment on above: Vitamin D 25(OH) Sta tus Range Deficiency <20 ng/mL (50nmol/L) Insufficiency 20 - 30 ng/mL (50 - 75 nmol/L) Sufficiency 30 - 100 ng/mL (75 - 250 nmol/L) Toxicity >100 ng/mL (>250 nmol/L) Platelets bldOrdered By: Dr. Tripathi on 03-06-2022 Platelets (Bld) [#/Vol] 269 10*3/uL 150-450 [facility] Serum or plasma albumin monica urement (mass/volume)Ordered By: Dr. Tripathi on 03-06-2022 Albumin [Mass/Vol] 4.0 g/dL 3.2-5.0 [facility] Serum or plasma albumin/glob ulin mass ratioOrdered By: Dr. Tripathi on 03-06-2022 Albumin/Globulin [Mass ratio] 1.1 {ratio} 0.9-2.4 [facility] Serum or plasma calcium monica urement (mass/volume)Ordered By: Dr. Tripathi on 03-06-2022 Calcium [Mass/Vol] 8.9 mg/dL 8.5-10.1 [facility] Serum or plasma cholesterol in HDL measurement (mass/volume)Ordered By: Dr. Tripathi on 03-06-2022 Cholesterol in HDL [Mass/Vol] 80 mg/dL >40 [facility] Comment on above: The drugs N-Acetylcy steine and Metamizole may falsely depress this assay. Reference Range HDL <40 mg/dL Low HDL Cholesterol HDL >or= 60 mg/dL High HDL Cholesterol Serum or plasma cholesterol in VLDL measurement (mass/volume)Ordered By: Dr. Tripathi on 03-06-2022 Cholesterol in VLDL [Mass/Vol] 13 mg/dL 5-40 [facility] Serum or plasma creatinine m easurement (mass/volume)Ordered By: Dr. Tripathi on 03-06-2022 Creatinine [Mass/Vol] 0.91 mg/dL 0.55-1.02 [facility] Comment on above: The validity of the calculated GFR & GFRAA in patients over 70 years has not been determined. Clinical correlation is essential. Serum or plasma low density lipoprotein (LDL) cholesterol measurement (mass/volume)Ordered By: Dr. Tripathi on 03-06-2022 Cholesterol in LDL [Mass/Vol] 118 mg/dL 0-130 [facility] Serum or plasma urea nitroge n measurement (mass/volume)Ordered By: Dr. Tripathi on 03-06-2022 Urea nitrogen [Mass/Vol] 12 mg/dL 7-18 [facility] Thin prep Papanicolaou smear with manual screeningOrdered By: Dr. Tripathi on 03-06-2022 Thin prep Papanicolaou smear with manual screening 16 U/L 15-37 [facility] Thin prep Papanicolaou smear with manual screening 7 5-15 [facility] Encounters Encounter Date Encounter Type Care Provider Facility Start: 08-31-2024 End: 08-31-[address] Damir Tripathi DO Work Phone: [facility] [place] Start: 08-31-2024 End: 08-31-2024 Patient encounter procedure Natasha Lacy REGULATORY ADMINISTRATOR-C -[facility] Work Phone: Start: 08-31-2024 End: 08-31-2024 ambulatory Natasha Lacy Facility:[facility] Start: 06-07-2024 End: 06-07-2024 Patient encounter procedure Natasha Lacy REGULATORY ADMINISTRATOR-C -[facility] [place] Work Phone: Start: 06-07-2024 End: 06-07-2024 ambulatory Damir Tripathi Facility:[facility] Start: 04-06-2024 Encounter for genera l adult medical examination without abnormal findings Damir Tripathi [facility] Start: 03-18-2024 End: 03-18-2024 ambulatory Damir Tripathi Facility:[facility] Start: 02-23-2024 End: 02-23-2024 ambulatory Damir Tripathi Facility:[facility] Start: 01-03-2024 End: 01-03-2024 ambulatory Damir Tripathi Facility[place] Start: 10-02-2023 End: 10-02-2023 ambulatory Damir Tripathi Facility:[facility] Start: 02-12-2023 End: 02-12-2023 ambulatory [facility] Work Phone: Start: 02-12-2023 End: 02-12-2023 Patient encounter procedure [facility] Work Phone: Start: 11-07-2022 End: 11-07-2022 ambulatory [facility] Work Phone: Start: 11-07-2022 End: 11-07-2022 Patient encounter procedure [facility] Work Phone: Start: 09-17-2022 End: 09-17-2022 Patient encounter procedure [facility] Work Phone: Start: 07-25-2022 End: 07-25-2022 Patient encounter procedure [facility] Work Phone: Start: 05-27-2022 Telephone encounter Isael Costa MD Work Phone: [facility] Comment on above: Release Of Medical R ecords Start: 03-06-2022 End: 03-06-2022 ambulatory [facility] Work Phone: Start: 03-06-2022 End: 03-06-2022 Patient encounter procedure [facility] Start: 11-13-2018 Patient encounter ISAEL CHAN Facility:[facility] Start: 12-25-2017 Patient encounter ISAEL CHAN Facility:[facility] Start: 11-14-2017 End: 11-14-2017 Patient encounter ISAEL CHAN Facility:[facility] Start: 01-23-2017 End: 01-23-2017 Patient encounter ISAEL CHAN Facility:[facility] Procedures Date Procedure Procedure Detail Performing Clinician Start: 08-31-2024 Vitamin D, 25-hydrox y measurement Dr. Damir Tripathi DO Work Phone: Comment on above: Vitamin D StatusDefi ciency: <20 ng/mL (50nmol/L)Insufficiency: 20-30 ng/mL (50-75 nmol/L)Sufficiency: 30-100 ng/mL (75-250 nmol/L)Toxicity: >100 ng/mL (>250 nmol/L) Start: 06-07-2024 Vitamin D, 25-hydrox y measurement Dr. Damir Tripathi DO Work Phone: Comment on above: Vitamin D StatusDefi ciency: <20 ng/mL (50nmol/L)Insufficiency: 20-30 ng/mL (50-75 nmol/L)Sufficiency: 30-100 ng/mL (75-250 nmol/L)Toxicity: >100 ng/mL (>250 nmol/L) Plan of Treatment Date Care Activity Detail Author Start: 10-18-2022 Influenza vaccination INFLUENZA (Sea son Ended) [facility] Start: 02-17-2022 DEPRESSION ASSESSMENT DEPRESSION ASS ESSMENT [facility] Start: 2018 Mammography MAMMOGRAM [facility] Start: 2008 HPV TESTING HPV TESTING [facility] Start: 1999 PAP TESTING PAP TESTING [facility] Start: 1997 Urine microalbumin profile DTAP,TDAP ,TD (1 - Tdap) [facility] Start: 1996 HEPATITIS C SCREENING HEPATITIS C SC TWAN [facility] Start: 1996 HIV SCREENING HIV SCREENING [facility] Start: 1978 COVID-19 VACCINE (#1) COVID-19 VACCI NE (#1) [facility] Start: 1978 HEPATITIS B (1 of 3 - 3-dose series) HEPATITIS B (1 of 3 - 3-dose series) [facility] Payers Date Payer Category Payer Self-pay [id number] 2023 Unknown [id number] 2016 Unknown [id number] Unknown [id number] [id number] Unknown [id number] [id number] [id number] Unknown [id number] [id number] [id number] Unknown [id number] [id number] [id number] Unknown [id number] 2.16.8 [id number] Unknown [id number] 2.16.8 [id number] Social History Date Type Detail Facility Start: 11-10-2015 End: 11-10-2015 Tobacco smoking status [facility] Unknown if ever smoked [facility] Start: 1980 Sex Assigned At Female [facility] Start: 04-04-2016 End: 01-03-2024 Tobacco smoking status NHIS Ex-smoker [facility] Work Phone: History of tobacco use Current smoker [facility] Work Phone: History of tobacco use Cigarette Smoker [facility] Work Phone: Start: 04-04-2016 Tobacco use and exposure Smokeless tobacco non-user [facility] Work Phone: Start: 11-14-2017 Alcohol intake Current drinke r of alcohol (finding) [facility] Start: 1980 Sex Assigned At Not on file [facility] Note 05-27-2022 Telephone Encounter - Amadou Price - 05/27/2022 10:46 AM EDT Note Date & Type Note Facility 05-27-2022 Miscellaneous Notes Formattin g of this note might be different from the original. [facility] FROM [facility] CALLED AND LEFT A VOICEMAIL MESSAGE REQUESTING PATIENT'S MEDICAL RECORDS, PATIENT WOULD NEED TO SIGN A MEDICAL RECORDS RELEASE FORM, I DID TRY TO CALL PATIENT AND ADVISE HER BUT NO ANSWER AND HER MAILBOX IS FULL. THANK YOU Amadou Price May 27, 2022 10:48 AM documented in this encounter [facility] Evaluation note Note Date & Type Note Facility Evaluation note No assessment information availa ble [facility] Work Phone: Reason for referral (narrative) Note Date & Type Note Facility Reason for referral (narrative) No reason for referral information available [facility] Work Phone: Summary Purpose Family History No Family History Records Found Relationship Condition Age at Onset Recorded Date/T issac Not Specified Coronary artery disease Unknown Cardiac disease Unknown Malignant neoplasm Unknown Disorder of thyroid Unknown Advance Directives No Advanced Directives Records Found Advance Directive Response Recorded Date/ Time Living Will No November 10, 2015 3:44pm Power of Base Cloth Inspector No October 3:44pm Advance Directive Response Recorded Date/ Time Living Will No November 10, 2015 4:44pm Power of Base Cloth Inspector No October 4:44pm Chief Complaint and Reason for Visit Chief Complaint Admit Date August 31, 2024 7:56 am Additional Source Comments INFORMATION SOURCE (unrecogn ized section and content) DATE CREATED AUTHOR 12/15/[address] [facility] DATE CREATED AUTHOR AUTHOR'S ORGANIZ ATION 06/01/2022 [facility] DATE CREATED AUTHOR AUTHOR'S ORGANIZ ATION 09/08/2024 [facility] Care Teams (unrecognized sec tion and content) Team Status: Active Member Role Status Dates Marie Oseguera DO Family Provider Active Dr. Damir Tripathi DO Primary Care Provider Active Team Status: Inactive Member Role Status Dates Dr. Damir Tripathi DO Primary Care Provide r, Attending Provider, Referring Provider Active Clerical Warehouseman Relationship Specialty Start Date End Date Marie Staples DO PCP - General Family Medicine 09/06/15 Team Status: Inactive Member Role Status Dates Dr. Damir Tripathi DO Primary Care Provider Active Dr. Jaxson Johnson MD Attending Provider, Referrin g Provider Active Team Status: Inactive Member Role Status Dates ESTER VALENCIA Attending Provider Active Dr. Damir Tripathi DO Primary Care Provider Active Team Status: Inactive Member Role Status Dates ESTER VALENCIA Attending Provider, Referring Provider Ac tive Dr. Damir Tripathi DO Primary Care Provider Active Team Status: Active Member Role/Relationship Status Dates Dr. Damir Tripathi DO Primary Care Provider Active Team Status: Inactive Member Role/Relationship Status Dates Dr. Damir Tripathi DO Primary Care Provider Active Start: June 07, 2024 End: June 07, 2024 DANNIE Mondragon Attending Provider Active S tart: June 07, 2024 End: June 07, 2024 Natasha Lacy NP-C Referring Provider Active S tart: June 07, 2024 End: June 07, 2024 Team Status: Inactive Member Role/Relationship Status Dates Dr. Damir Tripathi DO Primary Care Provider Active Start: August 31, 2024 End: August 31, 2024 Natasha Lacy NP-Velasquez Attending Provider Active S tart: August 31, 2024 End: August 31, 2024 DANNIE Mondragon Referring Provider Active S tart: August 31, 2024 End: August 31, 2024 Goals (unrecognized section and content) Goals may be documented in a n alternate sectionGoals may be documented in an alternate sectionGoals may be documented in an alternate sectionGoals may be documented in an alternate section Source Comments (unrecognize d section and content) In the event this informatio n is protected by the Federal Confidentiality of Alcohol and Drug Abuse Patient Records regulations: The Federal rules restrict any use of the information to criminally investigate or prosecute any alcohol or drug abuse patient.[facility] Reason for Visit (unrecogniz ed section and content) Reason Comments Release Of Medical Records FOR RECORDS PERTAINING TO PATIENTS WHO ARE OR HAVE BEEN ENROLLED IN A CHEMICAL DEPENDENCY/SUBSTANCEABUSE PROGRAM, SOME INFORMATION MAY BE OMITTED. This clinical summary was aggregated from multiple sources. Caution should be exercised in using it in the provision of clinical care. This summary normalizes information from multiple sources, and as a consequence, information in this document may materially change the coding, format and clinical context of patient data. In addition, data may be omitted in some cases. CLINICAL DECISIONS SHOULD BE BASED ON THE PRIMARY CLINICAL RECORDS. [facility]. provides no warranty or guarantee of the accuracy or completeness of information in this document.
[2024-10-15 11:00] LABS: Free T3 2.8 pg/mL (2.18-3.98)
== END | disposition home or self-care (01) ==
LOC: MTLAB 07:15
PROVIDERS: PCP Student in an Organized Health Care Education/Training Program; Referring Provider Internal Medicine Endocrinology, Diabetes & Metabolism; Visit Provider Internal Medicine Endocrinology, Diabetes & Metabolism
DX: E06.3 Autoimmune thyroiditis (principal)
CPT/HCPCS: 36415; 84439; 84443; 84481